=== PATIENT | male | born 1985 | race Caucasian/White ===

== ENCOUNTER 2017-07-20 12:14 | Inpatient (IN) | payer BC, OTHER ==
[~2017-07-20] VITALS: Ht 182.9 cm; Wt 117.9 kg
--- NOTE | 2017-07-20 14:42 | NUR ---
Pre-Assessment Senior Education Specialist asked to assess pt for admittance into [facility]. Pt presents as calm and cooperative, A/O x4 and able to make needs known. Pt is irritable, at times, able to control self. Pt's VS stable. Pt reports an allergy to Tetanus. Denies any PMH or home medications. Pt denies any history of seizures. Endorses a dependence on Heroin and Xanax. Pt endorses a regular diet. Pt is [facility].
[2017-07-20] MEDS ORDERED: LORAZEPAM 2 MG/1 ML VIAL IM PRN (14:45)
[2017-07-20] MEDS ORDERED: LOPERAMIDE HCL 2 MG CAPSULE PO PRN ×2 (14:45)
[2017-07-20] MEDS ORDERED: MAGNESIUM HYDROXIDE 30 ML LIQUID UDC PO PRN (14:45)
[2017-07-20] MEDS ORDERED: ONDANSETRON ODT 4 MG TAB.RAPDIS SL PRN (14:45)
[2017-07-20] MEDS ORDERED: LORAZEPAM 1 MG TABLET PO PRN ×2 (14:45)
[2017-07-20] MEDS ORDERED: ACETAMINOPHEN 325 MG TABLET PO PRN (14:45)
[2017-07-20] MEDS ORDERED: METHOCARBAMOL 750 MG TABLET PO PRN (14:45)
[2017-07-20] MEDS ORDERED: CLONIDINE HCL 0.1 MG TABLET PO PRN (14:45)
[2017-07-20] MEDS ORDERED: MAG HYDROX/AL HYDROX/SIMETH 30 ML LIQUID UDC PO PRN (14:45)
[2017-07-20] MEDS ORDERED: diphenhydrAMINE 50 MG CAPSULE PO PRN (14:45)
[2017-07-20] MEDS ORDERED: ONDANSETRON 4 MG/2 ML VIAL IM PRN (14:45)
[2017-07-20] MEDS ORDERED: MIRALAX 17 GM POWD.PACK PO PRN (14:45)
[2017-07-20] MEDS ORDERED: BUPRENORPHINE HCL 2 MG TAB.SUBL SL PRN (14:45)
[2017-07-20] MEDS ORDERED: HYDROXYZINE PAMOATE 25 MG CAPSULE PO PRN (14:45)
[2017-07-20] MEDS ORDERED: DICYCLOMINE HCL 20 MG TABLET PO PRN (14:45)
--- NOTE | 2017-07-20 14:45 | NUR ---
Admission Note Pt was admitted to [facility] per ambulation and escorted by intake personal. Pt is calm and cooperative. Makes his needs known. Pt has a restricted affect and depressed mood. A/O x4. Irritable and easily annoyed. VS stable on admit, skin intact with a scar under breast, due to Gynocamastia. Pt states no other medical issues and does not take home medication. Pt denies any previous seizure history. Pt states he has an allergy to Tetnus. Eats a regular diet and is a full code. Pt has been two previous treatment facilities and is ambivalent about going to a third. Pt states he has come detox due to his care breaking down and not having anywhere else to turn. Pt endorses using Heroin and Xanax for 10+ years and last used at 0900. Pt uses 0.5g/[place] White or 1g Black Tar Heroin daily and 1-2mg of Xanax. Pt denies Hi/SI or A/VH, or any other psychiatric illnesses. Pt denies having a PCP, Psychiatrist or therapist. Pt's initial COWS 4 and CIWA 4. Pt not making any complaints and denies any withdrawal symptoms at this time. Pt educated on unit rules, guidelines and restrictions with no further comments, questions or concerns voiced. Will continue to monitor, support and encourage according to plan of care.
[2017-07-20 17:02] VITALS: BP 126/82
[2017-07-20 17:23] LABS: *AMPHETAMINE, URINE NEGATIVE (NEGATIVE); *BARBITURATE, URINE NEGATIVE (NEGATIVE); *CANNABINOID, URINE POSITIVE (NEGATIVE); *COCCAINE, URINE NEGATIVE (NEGATIVE); *OPIATE, URINE POSITIVE (NEGATIVE); *PHENCYCLIDINE SCREEN,URINE NEGATIVE (NEGATIVE)
--- NOTE | 2017-07-20 19:06 | NUR ---
End of Shift Lottery Sales Clerk provided report for 31 year old male admitted today by publicity writer. Pt is admitted for Heroin and Xanax detoxification. Pt reports allergy to Tetnus and eats a regular diet and is a full code. Denies PMH, history of breast reduction due to Gynocamastia. Skin in is intact, aside from large scar running length of chest, under breasts. Pt denies a history of seizures. Placed on universal and seizure precautions. Pt will start his Ativan taper tonight and Subutex taper tomorrowPt was not provided with PRN and has made no complaints of [id number] symptoms. Pt has been calm and cooperative, although can be short and irritable. Provided urine, awaiting test results. Pts 1600 CIWA 7 and COWS 6. Bed in low position, wheels locked and side rails up x2. All safety measures in place. Will continue to monitor, support and encourage according to plan of care.
--- NOTE | 2017-07-20 19:45 | NUR ---
Start of Shift Notes Received 31 year old male admitted on 07/20/2017 for Heroin and Xanax dependence. Px has allergies on Tetanus and eats a regular diet and is a full code. PMHx of breast reduction due to Gynecomastia. Skin in is intact, aside from large scar running length of chest, under breasts. Px denies a history of seizures. Placed on universal and seizure precautions. Px will start his Ativan taper tonight and Subutex taper tomorrow. During the rounds at 1940, px reported moderate anxiety and heart burn. Bed in low position, wheels locked and side rails up x2. All safety measures in place. We'll continue to monitor, support and encourage according to plan of care.
[2017-07-20 20:00] VITALS: BP 119/74
[2017-07-20] MEDS: GABAPENTIN 300 MG CAPSULE PO SCH (20:41)
[2017-07-20] MEDS: IBUPROFEN 600 MG TABLET PO PRN (20:41)
--- NOTE | 2017-07-20 20:41 | NUR ---
PRN meds 2040, px reported heart haley and body aches 08/28. Maalox 30 ml given PO and Motrin 600 mg given PO as PRN meds. We'll continue to monitor.
[2017-07-20] MEDS ORDERED: LORAZEPAM 1 MG TABLET PO SCH (21:00)
[2017-07-20 23:00] LABS: ALANINE AMINOTRANSFERASE 71 U/L (16-63); ALKALINE PHOSPHATASE 98 U/L (50-136); ASPARTATE AMINOTRANSFERASE 26 U/L (15-37); BILIRUBIN,TOTAL 0.4 mg/dL (0.2-1.0); CARBON DIOXIDE 26 mmol/L (21-32); CHLORIDE 102 mmol/L (98-107); GLUCOSE 102 mg/dL (74-106); MAGNESIUM 2.2 mg/dL (1.8-2.4); POTASSIUM 4.2 mmol/L (3.5-5.1); TOTAL PROTEIN, SERUM 7.8 g/dL (6.4-8.2); UREA NITROGEN, BLOOD 17 mg/dL (7-18)
[2017-07-20 23:06] LABS: ETHANOL < 3 MG/DL (0-0)
[2017-07-20 23:12] LABS: BASOPHILS # (AUTO) 0.1 K/uL (0.0-8.0); BASOPHILS % (AUTO) 0.6 % (0.0-2.0); EOSINOPHILS # (AUTO) 0.2 K/uL (0.0-0.7); EOSINOPHILS % (AUTO) 1.5 % (0.0-7.0); HEMATOCRIT 40.8 % (36.7-47.1); HEMOGLOBIN 13.9 g/dL (12.5-16.3); LYMPHOCYTES # (AUTO) 3.3 K/uL (20.0-40.0); LYMPHOCYTES % (AUTO) 24.7 % (20.5-51.5); MEAN CORPUSCULAR HEMOGLOBIN 28.6 uug (23.8-33.4); MEAN CORPUSCULAR HGB CONC 34 g/dL (32.5-36.3); MEAN CORPUSCULAR VOLUME 84.1 fL (73.0-96.2); MONOCYTES # (AUTO) 0.8 K/uL (2.0-10.0); MONOCYTES % (AUTO) 5.8 % (0.0-11.0); NEUTROPHILS % (AUTO) 67.4 % (38.5-71.5); PLATELET COUNT (AUTO) 291 K/uL (152-348); RED BLOOD CELL COUNT(AUTO) 4.86 MIL/uL (4.06-5.63); WHITE BLOOD COUNT (AUTO) 13.3 K/uL (3.6-10.2)
[2017-07-21] VITALS: BP 113/60
[2017-07-21 04:00] VITALS: BP 119/66
--- NOTE | 2017-07-21 07:15 | NUR ---
End of Shift Notes 31 year old male admitted on 07/20/2017 for Heroin and Xanax dependence. Px has allergies on Tetanus and eats a regular diet and is a full code. PMHx of breast reduction due to Gynocamastia. Skin in is intact, aside from large scar running length of chest, under breasts. Px denies a history of seizures. Placed on universal and seizure precautions. Px will start his Ativan taper tonight and Subutex taper tomorrow. During the shift, px reported moderate anxiety. At 2040, px reported heart haley and body aches 08/28. Maalox 30 ml given PO and Motrin 600 mg given PO as PRN meds. Oral intake of 500 ml, voided 2x, No BM. Slept for 8 hours. Bed in low position, wheels locked and side rails up x2. All safety measures in place. We'll continue to monitor, support and encourage according to plan of care.
--- NOTE | 2017-07-21 07:44 | NUR ---
START OF SHIFT RECEIVED PT LAYING IN BED, A/OX4, RESPIRATIONS EVEN AND UNLABORED. PT APPEARS ANXIOUS, AGITATED, PUPILS LARGER THAN NORMAL SIZE, PILOERECTION OF THE SKIN SEEN,TREMORS ARE FELT. PT REPORTS HAVING COLD SWEATS, RESTLESSNESS, ANXIETY, GENERALIZED BODY ACHES, BACKACHE. SUBUTEX INDUCTION TO BEGIN TODAY. SIDE RAILS UPX2, BED IS IN LOWEST POSITION. CALL LIGHT IS WITHIN REACH. ALL SAFETY MEASURES IN PLACE. WILL CONTINUE TO MONITOR.
[2017-07-21 08:00] VITALS: BP 134/88
[2017-07-21] MEDS: GABAPENTIN 300 MG CAPSULE PO SCH (08:05)
[2017-07-21] MEDS: IBUPROFEN 600 MG TABLET PO PRN (08:39)
--- NOTE | 2017-07-21 08:40 | NUR ---
PRN MOTRIN 600 MG PO PRN GIVEN FOR GENERALIZED BODY ACHES AND BACKACHE 12/28. WILL MONITOR FOR EFFECTIVENESS.
[2017-07-21] MEDS ORDERED: BUPRENORPHINE HCL 2 MG TAB.SUBL SL SCH (09:00)
[2017-07-21] MEDS ORDERED: LORAZEPAM 1 MG TABLET PO SCH (09:00)
[2017-07-21] MEDS ORDERED: TUBERCULIN,PURIF.PROT.DERIV. 5 TU/0.1 ML TEST ID ONE (09:00)
--- NOTE | 2017-07-21 09:40 | NUR ---
REASSESSMENT PT REPORTS MED WAS NOT EFFECTIVE FOR HIS BACKACHE. WILL CONTINUE TO MONITOR.
--- NOTE | 2017-07-21 10:15 | NUR ---
PRN ATIVAN 2 MG PO PRN GIVEN FOR CIWA 16, ROBAXIN 750 MG PO PRN GIVEN FOR HEADACHE, BODY ACHES AND BACK PAIN 01/28. PT IS HIGHLY AGITATED AND ANXIOUS, PT IS SWEATING AND TREMORS ARE NOTED. WILL MONITOR FOR EFFECTIVENESS.
--- NOTE | 2017-07-21 11:15 | NUR ---
REASSESSMENT CIWA 7. PT APPEARS LESS AGITATED AND ANXIOUS, MILD TREMORS NOTED. PT VERBALIZED HE WANTS TO LEAVE AMA, ENCOURAGED PT TO STAY. WILL CONTINUE TO MONITOR AND PROVIDE SUPPORT.
--- NOTE | 2017-07-21 11:45 | NUR ---
AMA PT LEFT AMA AT 1145 ON 07/21/17 WITH ALL BELONGINGS, AND AMA PAPERWORK. MULTIPLE STAFF INCLUDING DR. RAPHAEL TRIED TO ENCOURAGE PT TO CONTINUE DETOX. PT VERBALIZED UNDERSTANDING HOWEVER HE STATED HE WAS NOT READY FOR TREATMENT AND ADAMANT ABOUT LEAVING. AMA PAPERWORK EXPLAINED, DATED AND SIGNED. PT DENIED HOPKINS/HI, VVS, SKIN INTACT. AWARE OF PT AMA. Addendum: 07/21/17 at 1212 by BRANDON MARIE RN AMA NOTE
[2017-07-22 08:07] LABS: HEPATITIS B SURFACE AG Negative (Negative)
[2017-07-22] MEDS ORDERED: BUPRENORPHINE HCL 2 MG TAB.SUBL SL SCH ×2 (09:00→15:00)
[2017-07-22] MEDS ORDERED: LORAZEPAM 1 MG TABLET PO SCH (09:00)
[2017-07-23] MEDS ORDERED: BUPRENORPHINE HCL 2 MG TAB.SUBL SL SCH (09:00)
[2017-07-23] MEDS ORDERED: LORAZEPAM 1 MG TABLET PO SCH (09:00)
[2017-07-24] MEDS ORDERED: LORAZEPAM 1 MG TABLET PO SCH (09:00)
[2017-07-24] MEDS ORDERED: BUPRENORPHINE HCL 2 MG TAB.SUBL SL SCH (09:00)
== END 2017-07-21 11:45 | disposition left against medical advice (07) | DRG 894 ==
LOC: SRC 14:00
PROVIDERS: ADMIT Internal Medicine; ATTEND Internal Medicine
PROC: HZ2ZZZZ Detoxification Services for Substance Abuse Treatment (ICD-10-PCS; principal; 2017-07-20)
DX: F11.23 Opioid dependence with withdrawal (principal); F14.10 Cocaine abuse, uncomplicated; G47.00 Insomnia, unspecified; F13.239 Sedative, hypnotic or anxiolytic dependence with withdrawal, unspecified; F41.9 Anxiety disorder, unspecified; Z81.1 Family history of alcohol abuse and dependence; Z83.3 Family history of diabetes mellitus
CPT/HCPCS: 36415; 80307; 80346; 80349; 80361; 83735; 85025; 86580; 86592; 86705; 86803; 87340; 87806; A4663; G0480

== ENCOUNTER 2017-10-12 15:45 | Inpatient (IN) | payer BC, OTHER ==
[~2017-10-12] VITALS: Ht 182.9 cm; Wt 113.4 kg
[2017-10-12] MEDS ORDERED: ONDANSETRON ODT 4 MG TAB.RAPDIS SL PRN (19:45)
[2017-10-12] MEDS ORDERED: MIRALAX 17 GM POWD.PACK PO PRN (19:45)
[2017-10-12] MEDS ORDERED: LORAZEPAM 1 MG TABLET PO PRN (19:45)
[2017-10-12] MEDS ORDERED: HYDROXYZINE PAMOATE 25 MG CAPSULE PO PRN (19:45)
[2017-10-12] MEDS ORDERED: LORAZEPAM 2 MG/1 ML VIAL IM PRN (19:45)
[2017-10-12] MEDS ORDERED: LOPERAMIDE HCL 2 MG CAPSULE PO PRN ×2 (19:45)
[2017-10-12] MEDS ORDERED: CLONIDINE HCL 0.1 MG TABLET PO PRN (19:45)
[2017-10-12] MEDS ORDERED: BUPRENORPHINE HCL 2 MG TAB.SUBL SL PRN (19:45)
[2017-10-12] MEDS ORDERED: ACETAMINOPHEN 325 MG TABLET PO PRN (19:45)
[2017-10-12] MEDS ORDERED: IBUPROFEN 600 MG TABLET PO PRN (19:45)
[2017-10-12] MEDS ORDERED: MAGNESIUM HYDROXIDE 30 ML LIQUID UDC PO PRN (19:45)
[2017-10-12] MEDS ORDERED: MAG HYDROX/AL HYDROX/SIMETH 30 ML LIQUID UDC PO PRN (19:45)
--- NOTE | 2017-10-12 19:45 | NUR ---
Intake Assessment Px is A&Ox4. Px is ambulatory with steady gait. Speech is clear and audible. Px appears disheveled and unshaven. Px is cooperative during interview. VS are as follows BP= 124/88, AZ= 121, RR= 18, O2sat= 95%, and T= 96.7. No complaints of pain at the moment. Px is here for medically supervised withdrawal from opiate and benzo. Px denies any seizure hx. Px is allergic to tetanus toxoid and vaccine. Px didn't bring any home medications. Admission process will continue in the unit.
[2017-10-12 20:30] VITALS: BP 109/73
--- NOTE | 2017-10-12 20:30 | NUR ---
Admission Note Px is a 31 y/o male who is being admitted for medically supervised withdrawal from opiate and benzo. The px is intoxicated at the moment and not currently experiencing withdrawal. Px appears disheveled and unshaven. Px looks depressed. Px is A&Ox4. Speech is clear and has good eye contact. Px states that he experiences high anxiety, restlessness, sweats, chills, stomach cramps, and body pains if he is not using drugs. Px denies hx of withdrawal-induced seizure. Px states current substance use as follows: 1. Heroin- 1-2 G smoked daily for 4 mos, last use 10/12/2017 of 0.3 G smoked 2. Alprazolam- 0.5 mg to 1.5 mg PO daily for 6-8 mos, last intake 10/12/2017 of 0.5 mg PO 3. Hydrocodone-Acetaminophen- intermittent use 4. Soma- intermittent use 5. Cocaine- intermittent use Px states that he is seeking tx today because he wanted to stop this expensive habit of drug use. Px had been in tx/detox before, 3x where the last was July of 2017 here in [facility] in which the px went AMA within 24 hours. Px was able to be sober for 5 mos in the year 2010. Px states that he cant stay up sober due to the following: failure to be professional, emotional pains and heart breaks in relationships. Px states that he just need to focus and stay on the right track and have a lot of realizations to be sober. Px verbalized I want to be normal again. VS are as follows BP= 109/73, OH= 116, RR= 17, T= 97.6, O2sat= 97% in RA. Pulse is regular but tachycardic. Respirations are even and unlabored. Lungs li are clear. Bowel sounds are active in all quadrants. Skin is intact. Px follows regular diet at home. Px is allergic to Tetanus toxoid and vaccine. Px's ht= 6' and weighs 250 lbs. Px's PMH includes asthma(not active), anxiety, depression and surgical operation due to gynecomastia in january 2017. Px doesn't have PCP, or psychiatrist. Px was educated about the plan of care including detox, group therapy, individual therapy and D/C planning. Px was encouraged to be open, honest and verbalize support for successful recovery.
[2017-10-12 21:38] LABS: *AMPHETAMINE, URINE NEGATIVE (NEGATIVE); *BARBITURATE, URINE NEGATIVE (NEGATIVE); *CANNABINOID, URINE NEGATIVE (NEGATIVE); *COCCAINE, URINE NEGATIVE (NEGATIVE); *OPIATE, URINE POSITIVE (NEGATIVE); *PHENCYCLIDINE SCREEN,URINE NEGATIVE (NEGATIVE)
--- NOTE | 2017-10-12 21:48 | NUR ---
1x dose medications Ativan 1 mg/tab, 2 tabs given PO and Gabapentin 300 mg/cap, 1 cap PO as 1x dose medications. We'll continue to monitor.
--- NOTE | 2017-10-12 21:52 | NUR ---
PRN Imodium Px complained of 1x watery stools. Px was given Imodium 2 mg/cap, 2 caps PO as PRN med. We'll continue to monitor.
[2017-10-12] MEDS ORDERED: LORAZEPAM 1 MG TABLET PO SCH (22:00)
[2017-10-12] MEDS ORDERED: GABAPENTIN 300 MG CAPSULE PO SCH (22:00)
[2017-10-12 22:42] LABS: BASOPHILS # (AUTO) 0.2 K/uL (0.0-8.0); BASOPHILS % (AUTO) 1.2 % (0.0-2.0); EOSINOPHILS # (AUTO) 0.1 K/uL (0.0-0.7); EOSINOPHILS % (AUTO) 0.9 % (0.0-7.0); HEMATOCRIT 45.5 % (36.7-47.1); HEMOGLOBIN 15.7 g/dL (12.5-16.3); LYMPHOCYTES # (AUTO) 2.5 K/uL (20.0-40.0); LYMPHOCYTES % (AUTO) 20.3 % (20.5-51.5); MEAN CORPUSCULAR HEMOGLOBIN 29.4 uug (23.8-33.4); MEAN CORPUSCULAR HGB CONC 35 g/dL (32.5-36.3); MEAN CORPUSCULAR VOLUME 85.2 fL (73.0-96.2); MONOCYTES # (AUTO) 0.5 K/uL (2.0-10.0); MONOCYTES % (AUTO) 3.6 % (0.0-11.0); NEUTROPHILS # (AUTO) 9.3 K/uL (1.8-8.9); PLATELET COUNT (AUTO) 314 K/uL (152-348); RED BLOOD CELL COUNT(AUTO) 5.35 MIL/uL (4.06-5.63); WHITE BLOOD COUNT (AUTO) 12.6 K/uL (3.6-10.2)
[2017-10-12 22:58] LABS: ALANINE AMINOTRANSFERASE 97 U/L (16-63); ALKALINE PHOSPHATASE 107 U/L (50-136); ASPARTATE AMINOTRANSFERASE 31 U/L (15-37); BILIRUBIN,TOTAL 0.5 mg/dL (0.2-1.0); CARBON DIOXIDE 22 mmol/L (21-32); CHLORIDE 101 mmol/L (98-107); CREATININE 1.2 mg/dL (0.6-1.3); ETHANOL < 3 MG/DL (0-0); GLUCOSE 144 mg/dL (74-106); MAGNESIUM 2.2 mg/dL (1.8-2.4); POTASSIUM 3.9 mmol/L (3.5-5.1); TOTAL PROTEIN, SERUM 8.2 g/dL (6.4-8.2); UREA NITROGEN, BLOOD 20 mg/dL (7-18)
[2017-10-13] VITALS: BP 116/82
[2017-10-13 04:00] VITALS: BP 110/77
--- NOTE | 2017-10-13 04:00 | NUR ---
COWS and CIWA deferred COWS and CIWA deferred due to the px is asleep, to assess if the px is awake per doctor's order. We'll continue to monitor.
--- NOTE | 2017-10-13 07:11 | NUR ---
End of Shift Note During the shift at 2147, Px received 1x dose medications of Ativan 2 mg PO and Gabapentin 300 mg PO. At 2151, px was given Imodium 4 mg PO for 1x watery stools. It was effective. Px's oral intake is 600 ml, voided 2x, BM 1x. At 0630, px is asleep on bed in right side lying position. Last COWS 4 and CIWA 6. Bed on lowest position, side rails up 2x and call light within reach. We'll continue to monitor. Px endorsed to AM shift nurse.
--- NOTE | 2017-10-13 07:15 | NUR ---
START OF SHIFT: PATIENT IS A 31 YR OLD MALE ADMITTED TO [facility] ON 10/12/17 FOR A MEDICALLY SUPERVISED WITHDRAWAL FROM HEROIN, BENZODIAZEPINES, OXYCODONE AND COCAINE. PATIENT HAS BEEN ORDERED A 4 DAY ATIVAN/SUBUTEX TAPER TO START TODAY. PATIENT IS AWAKE AT THIS TIME AND VOMITING, ZOFRAN 4MG IM GIVEN AND MAALOX 30CC PO PER REQUEST. WILL CONTINUE TO MONITOR S/S. PRN IMMODIUM GIVEN ON PM SHIFT FOR DIARRHEA WHICH WAS EFFECTIVE. PATIENT SLEPT FOR 6 HOURS, LAST COWS 4 AND CIWA 6. CONTINUE TO FOLLOW MD PLAN OF CARE.
[2017-10-13] MEDS: ONDANSETRON 4 MG/2 ML VIAL IM PRN (07:26)
--- NOTE | 2017-10-13 07:30 | NUR ---
PRN ZOFRAN/MAALOX 4MG ZOFRAN IM GIVEN IN LEFT DELTOID FOR VOMITING X 3 AND CONSTANT NAUSEA MAALOX 30CC PO GIVEN FOR C/O ACID STOMACH WILL REASSESS
[2017-10-13 08:00] VITALS: BP 133/92
[2017-10-13] MEDS: DICYCLOMINE HCL 20 MG TABLET PO PRN ×2 (08:29→14:02)
[2017-10-13] MEDS: LORAZEPAM 1 MG TABLET PO SCH ×3 (08:29→21:17)
--- NOTE | 2017-10-13 08:30 | NUR ---
PRN REASSESS N/V CEASED, ZOFRAN/MAALOX EFFECTIVE
--- NOTE | 2017-10-13 08:30 | NUR ---
PRN IMODIUM IMODIUM 2MG PO GIVEN FOR DIARRHEA, WILL REASSESS
[2017-10-13] MEDS ORDERED: TUBERCULIN,PURIF.PROT.DERIV. 5 TU/0.1 ML TEST ID ONE (09:00)
--- NOTE | 2017-10-13 09:30 | NUR ---
PRN REASSESS IMODIUM EFFECTIVE, DIARRHEA CEASED, WILL CONTINUE TO MONITOR
[2017-10-13] MEDS: BUPRENORPHINE HCL 2 MG TAB.SUBL SL SCH ×3 (10:24→21:17)
[2017-10-13 12:00] VITALS: BP 126/93
[2017-10-13] MEDS: LORAZEPAM 1 MG TABLET PO PRN ×2 (12:38→17:53)
--- NOTE | 2017-10-13 12:40 | NUR ---
prn subutex/ativan SUBUTEX 4MG GIVEN COWS 14 ATIVAN 2MG PO GIVEN CIWA 13
[2017-10-13] MEDS ORDERED: QUET50TA14 PO (12:46)
--- NOTE | 2017-10-13 13:40 | NUR ---
PRN REASSESS SUBUTEX EFFECTIVE COWS DECREASED FROM 14 TO 9 ATIVAN EFFECTIVE CIWA DECREASED FROM 13 TO 10 WILL CONTINUE TO MONITOR AND ASSESS
[2017-10-13] MEDS: METHOCARBAMOL 750 MG TABLET PO PRN (14:02)
[2017-10-13 16:00] VITALS: BP 133/89
--- NOTE | 2017-10-13 17:55 | NUR ---
PRN ATIVAN/MOTRIN ATIVAN 2MG PO GIVEN FOR CIWA 13 AND INCREASED ANXIETY MOTRIN 600MG PO GIVEN FOR BODY ACHES /10
--- NOTE | 2017-10-13 19:18 | NUR ---
END OF SHIFT: PATIENT IS A 31 YR OLD MALE ADMITTED TO [facility] ON 10/12/17 FOR A MEDICALLY SUPERVISED WITHDRAWAL FROM HEROIN, BENZODIAZEPINES, OXYCODONE AND COCAINE. PATIENT HAS BEEN ORDERED A 4 DAY ATIVAN/SUBUTEX TAPER STARTED TODAY. PATIENTS WITHDRAWAL SYMPTOMS HAVE INCLUDED N/V, DIARRHEA,DYSPEPSIA, ABDOMINAL CRAMPING, CHILLS , DIAPHORESIS, RESTLESS LEGS, DECREASED APETITE, ANXIETY AND AGITATION AND FATIGUE . PRN MEDICATIONS GIVEN ON THIS SHIFT : ZOFRAN IM, MAALOX, BENTYL,MOTRIN, SUBUTEX 4MG AND ATIVAN 2 MG X 2. PATIENT HAS BEEN IN BED ALL DAY SLEEPING ON AND OFF. LAST COWS 13 AND CIWA 13@ 1700 . PATIENT HAD A FLUID INTAKE OF 1500 ML, 3 VOIDS AND 2 BM. CONTINUE TO FOLLOW MD PLAN OF CARE. ENDORSED TO NIGHT NURSE
--- NOTE | 2017-10-13 19:45 | NUR ---
Start of Shift Note Received a 31 y/o male px, admitted for medically supervised withdrawal from Opiate and Benzo. Px was placed on 4 day Ativan and 4 day Subutex taper. Px is tolerating them. Last reported COWS 13 and CIWA 13. During the rounds at 1945, px is awake on bed in fowlers position watching TV. Px appears anxious, unshaven and disheveled. Px stated "My anxiety 7/10 and I have body aches of 3/10". Bed on lowest position, side rails up 2x and call light within reach. We'll continue to monitor.
[2017-10-13 20:00] VITALS: BP 123/66
[2017-10-13] MEDS: GABAPENTIN 300 MG CAPSULE PO SCH (21:17)
[2017-10-13] MEDS: QUETIAPINE FUMARATE 100 MG TABLET PO SCH (21:17)
[2017-10-14] VITALS: BP 118/71
[2017-10-14 04:00] VITALS: BP 107/66
--- NOTE | 2017-10-14 04:00 | NUR ---
COWS and CIWA deferred COWS and CIWA deferred at 0000 and 0400 due to the px is asleep, to assess if the px is awake per doctor's order. We'll continue to monitor.
--- NOTE | 2017-10-14 07:15 | NUR ---
End of Shift Note During the shift, px complained of generalized body aches of 3/10 but doesn't want pain pill. Px's oral intake is 350 ml, voided 1x, No BM. Px slept for 8 hours. Last COWS 11 and CIWA 10. At 0630, px is asleep on bed in fowlers position. Bed on lowest position, side rails up 2x and call light within reach. We'll continue to monitor. Px endorsed to AM shift nurse.
--- NOTE | 2017-10-14 07:30 | NUR ---
START OF SHIFT Pt 31 y/o male admitted for opiate and benzo withdrawal. Pt received in room on bed with eyes closed resting, but easily arousable to name. Pt alert and oriented to name, place, and time. Perrla. Skin warm and moist to touch. Respirations even and unlabored. Bilateral hand tremors noted. Pt anxious this morning and with pressured speech noted. Pt appears disheveled. Clothes and empty water bottles scattered throughout the room. Encouraged to maintain hygiene. It was reported that pt slept for 8 hours last night. Pt is on a 4 day ativan taper and is on day 2. Pt is also on a 4 day subutex taper and is on day 2. Bed on lowest position with side railsx 2 up for safety. Call light within reach.
[2017-10-14 08:00] VITALS: BP 112/82
[2017-10-14] MEDS: GABAPENTIN 300 MG CAPSULE PO SCH ×2 (08:43→21:12)
[2017-10-14] MEDS: METHOCARBAMOL 750 MG TABLET PO PRN (08:44)
--- NOTE | 2017-10-14 08:45 | NUR ---
PRN Pt with c/o body aches generalized. Robaxin po prn per MD order given and tolerated well.
[2017-10-14] MEDS ORDERED: LORAZEPAM 1 MG TABLET PO SCH ×2 (09:00→21:00)
[2017-10-14] MEDS ORDERED: BUPRENORPHINE HCL 2 MG TAB.SUBL SL SCH (09:00)
[2017-10-14 09:07] LABS: HEPATITIS B SURFACE AG Negative (Negative)
--- NOTE | 2017-10-14 09:45 | NUR ---
ANTONIO PAULINO pt observed in room on bed watching television.
[2017-10-14 12:00] VITALS: BP 130/81
[2017-10-14] MEDS ORDERED: KETOROLAC TROMETHAMINE 30 MG INJ IM PRN (12:15)
[2017-10-14] MEDS: LORAZEPAM 1 MG TABLET PO SCH ×2 (13:55→16:45)
[2017-10-14] MEDS: ONDANSETRON 4 MG/2 ML VIAL IM PRN (14:06)
[2017-10-14] MEDS: BUPRENORPHINE HCL 2 MG TAB.SUBL SL SCH ×2 (14:11→21:11)
--- NOTE | 2017-10-14 14:20 | NUR ---
PRN Pt with vomit episode x1 of food particles. Zofran IM prn per MD order given and tolerated well.
--- NOTE | 2017-10-14 15:20 | NUR ---
PRN EVAL Pt denies any nausea / vomit at this time.
[2017-10-14 16:00] VITALS: BP 122/86
--- NOTE | 2017-10-14 18:46 | NUR ---
END OF SHIFT Pt 31 y/o male admitted for opiate and benzo withdrawal. Pt alert and oriented to name, place, and time. Perrla. Skin warm and moist to touch. Respirations even and unlabored. Bilateral hand tremors noted. Pt appears disheveled. Clothes and empty water bottles scattered throughout the room. Encouraged to maintain hygiene. It was reported that pt slept for 9 hours last night. Pt is on a 4 day ativan taper and is on day 2. Pt is also on a 4 day subutex taper and is on day 2. Cows=11@0800, 9@1200, and 9@1600. Ciwa=9@0800, 9@1200, and 9@1600. Bed on lowest position with side railsx 2 up for safety. Call light within reach.
--- NOTE | 2017-10-14 19:45 | NUR ---
Start of Shift Note Received a 31 y/o male px, admitted for medically supervised withdrawal from Opiate and Benzo. Px was placed on 4 day Ativan and 4 day Subutex taper. Px is tolerating them. Last reported COWS 9 and CIWA 9. During the rounds at 1945, px is awake on bed in fowlers position watching TV. Px appears anxious, unshaven and disheveled. Unfinished snacks noted on top of bed side table. Px stated "My anxiety is 7/10 and I feel like fatigued and weak". Bed on lowest position, side rails up 2x and call light within reach. We'll continue to monitor.
[2017-10-14 20:00] VITALS: BP 113/77
[2017-10-14] MEDS: BACLOFEN 10 MG TABLET PO SCH (21:11)
[2017-10-14] MEDS: QUETIAPINE FUMARATE 100 MG TABLET PO SCH (21:11)
[2017-10-14] MEDS: CLONIDINE HCL 0.1 MG TABLET PO SCH (21:12)
[2017-10-15] VITALS: BP 110/78
[2017-10-15 04:00] VITALS: BP 106/72
--- NOTE | 2017-10-15 07:00 | NUR ---
End of Shift Note During the shift, no PRN medications given. Px's oral intake is 800 ml, voided 2x, No BM. Px slept for 7 hours. Last COWS 7 and CIWA 7. At 0630, px is awake on bed in fowlers position. Bed on lowest position, side rails up 2x and call light within reach. We'll continue to monitor. Px endorsed to AM shift nurse.
--- NOTE | 2017-10-15 07:30 | NUR ---
START OF SHIFT Pt 31 y/o male admitted for opiate and benzo withdrawal. Pt received in room on bed awake watching television. Pt alert and oriented to name, place, and time. Perrla. Skin warm and moist to touch. Respirations even and unlabored. Bilateral hand tremors noted. Pt states is experiencing chills and sweats this morning. Pt appears disheveled. Clothes, food wrappings, and empty water bottles scattered throughout the room. Encouraged to maintain hygiene. It was reported that pt slept for 7 hours last night. Pt is on a 4 day ativan taper and is on day 3. Pt is also on a 4 day subutex taper and is on day 3. Bed on lowest position with side rails x 2 up for safety. Call light within reach.
[2017-10-15 08:00] VITALS: BP 122/78
[2017-10-15] MEDS: CLONIDINE HCL 0.1 MG TABLET PO SCH ×2 (08:40→20:45)
[2017-10-15] MEDS: GABAPENTIN 300 MG CAPSULE PO SCH ×3 (08:40→20:45)
[2017-10-15] MEDS: BACLOFEN 10 MG TABLET PO SCH ×2 (08:41→20:44)
[2017-10-15] MEDS: LORAZEPAM 1 MG TABLET PO SCH ×3 (08:41→20:45)
--- NOTE | 2017-10-15 08:49 | NUR ---
PRN Pt states feels nauseated. Zofran odt prn per MD order given and tolerated well.
[2017-10-15] MEDS ORDERED: BUPRENORPHINE HCL 2 MG TAB.SUBL SL SCH ×2 (09:00→21:00)
--- NOTE | 2017-10-15 09:49 | NUR ---
PRN EVAL Pt denies any nausea at this time.
[2017-10-15 12:00] VITALS: BP 95/59
[2017-10-15 16:00] VITALS: BP 114/71
--- NOTE | 2017-10-15 18:55 | NUR ---
END OF SHIFT Pt 31 y/o male admitted for opiate and benzo withdrawal. Pt alert and oriented to name, place, and time. Perrla. Skin warm and moist to touch. Respirations even and unlabored. Bilateral hand tremors noted. Pt appears disheveled. Food wrappings and empty water bottles scattered throughout the room. Encouraged to maintain hygiene. Pt observed mostly isolative to room throughout the day. Pt did not attend group activity. Pt was seen by MD today. Pt medication compliant and tolerated well. No ASE noted. Pt is on a 4 day ativan taper and is on day 3. Pt is also on a 4 day subutex taper and is on day 3. Cows=9@0800, 9@1200, and 9@1600. Ciwa=9@0800, 9@1200, and 9@1600. Bed on lowest position with side railsx 2 up for safety. Call light within reach.
--- NOTE | 2017-10-15 19:51 | NUR ---
START OF SHIFT NOTE Received report from outgoing nurse. Pt. is in his room and is a/o to person, place, time, and situation. Pt. is presenting with an anxious mood, easily agitated, blunted affect, restlessness, sweats, and fidgetiness. Pt. was admitted for heroine and xanax withdrawal. Pt. is on a modified 4 day Ativan and modified 4 day Subutex taper. Pt. received no PRN medications during previous shift. Pt.'s V/S remained stable throughout the day. Last CIWA 9 and COWS 9 @ 1600. Pt.'s bed is in the lowered position and call light within reach. Pt. will continue to be monitored and his needs met.
[2017-10-15 20:00] VITALS: BP 102/67
[2017-10-15] MEDS: QUETIAPINE FUMARATE 100 MG TABLET PO SCH (20:45)
--- NOTE | 2017-10-16 | NUR ---
RN NOTE CIWA, COWS, and V/S deferred. Pt. is in bed, eyes closed, and breathing is unlabored and even.
--- NOTE | 2017-10-16 05:34 | NUR ---
CIWA and COWS deferred. Pt. is in bed, eyes closed, and breathing is even and unlabored.
--- NOTE | 2017-10-16 07:06 | NUR ---
END OF SHIFT NOTE Endorsed pt. to oncoming nurse. Pt. is in his room and is a/o to person, place, time, and situation. Pt. has been presenting with an anxious mood, withdrawn, a flat affect, depressed demeanor, and easily agitated. Pt. had sweats and fine tremors. Pt. received no PRN medications during shift. Pt.s V/S remained stable throughout shift. Pt.s fluid intake was 796 ml. Pt. voided 1 time and slept for 5 hrs. Last CIWA 11 AND COWS 10 @ 1999. Call light within reach. Pt. will continue to be monitored.
--- NOTE | 2017-10-16 07:30 | NUR ---
START OF SHIFT Pt 31 y/o male admitted for opiate and benzo withdrawal. Pt received in room on bed with eyes closed resting, but easily arousable to name. Pt alert and oriented to name, place, and time. Perrla. Skin warm and moist to touch. Respirations even and unlabored. Bilateral hand tremors noted. Pt appears disheveled. Clothes and empty water bottles scattered throughout the room. Encouraged to maintain hygiene. It was reported that pt slept for 5 hours last night. Pt is on a 4 day ativan taper and is on day 4. Pt is also on a 4 day subutex taper and is on day 4. Bed on lowest position with side rails x 2 up for safety. Call light within reach.
[2017-10-16 08:00] VITALS: BP 99/63
[2017-10-16] MEDS: BACLOFEN 10 MG TABLET PO SCH ×3 (08:47→21:03)
[2017-10-16] MEDS: LORAZEPAM 1 MG TABLET PO SCH ×2 (08:47→21:03)
[2017-10-16] MEDS: GABAPENTIN 300 MG CAPSULE PO SCH ×3 (08:47→21:03)
[2017-10-16] MEDS: CLONIDINE HCL 0.1 MG TABLET PO SCH ×3 (08:57→21:00)
[2017-10-16] MEDS ORDERED: BUPRENORPHINE HCL 2 MG TAB.SUBL SL SCH ×2 (09:00)
[2017-10-16 12:20] VITALS: BP 113/70
[2017-10-16 16:00] VITALS: BP 105/60
--- NOTE | 2017-10-16 18:26 | NUR ---
END OF SHIFT Pt 31 y/o male admitted for opiate and benzo withdrawal. Pt alert and oriented to name, place, and time. Perrla. Skin warm and moist to touch. Respirations even and unlabored. Bilateral hand tremors noted. Pt appears disheveled. Clothes and empty water bottles scattered throughout the room. Encouraged to maintain hygiene. Pt observed mostly isolative to room throughout the day. Pt attended group activity. Pt was seen by MD today. Pt medication compliant and tolerated well. No ASE noted. Pt is on a 4 day ativan taper and is on day 4. Pt is also on a 4 day subutex taper and is on day 4. Cows=10@0800, 9@1200, and 10@1600. Ciwa=11@0800, 9@1200, and 9@1600. Bed on lowest position with side railsx 2 up for safety. Call light within reach.
--- NOTE | 2017-10-16 19:30 | NUR ---
START OF SHIFT Pt 31 year old male admitted for opiate and benzo medically supervised withdrawal. Pt received on bed watching TV. Pt is on a 4 day Ativan and 4 day Subutex taper. Pt alert and oriented to name, place, and time. Skin warm and dry to touch. Respirations even and unlabored, RR=16. Bilateral hand tremors noted. Bilateral hand tremors noted. Pt irritable and labile. No PRNs given during a day shift, last CIWA=9, last COWS=10 at 16:00. Pt. complains of labile mood, increased level of anxiety, difficulty falling and staying asleep. Encouraged patient to participate in group therapies and verbalize feelings. Education provided in safety and hygiene care. Patient verbalized understanding. Safety measures in place : bed on lowest position with side rails x2 up for safety, call light within reach. Will continue to monitor closely and offer help.
[2017-10-16 20:00] VITALS: BP 100/65
--- NOTE | 2017-10-16 21:00 | NUR ---
CATAPRES NOT GIVEN ([id number]) Catapres for 21:00 not given because of the low [id number]. Safety measures in place, will continue to monitor closely .
[2017-10-16] MEDS: QUETIAPINE FUMARATE 100 MG TABLET PO SCH (21:03)
--- NOTE | 2017-10-17 06:57 | NUR ---
END OF SHIFT Pt 31 year old male admitted for opiate and benzo medically supervised withdrawal. Pt is on a 4 day Ativan and 4 day Subutex taper. Pt. slept all night long. Last COWS=7, CIWA=7 at 04:00 , Zswbbo=659 ml, voids=x1 ml, slept=5 hours. No PRNs given at a night time. Safety measures in place : bed on lowest position with side rails x2 up for safety, call light within reach. Will continue to monitor closely and offer help.
--- NOTE | 2017-10-17 07:22 | NUR ---
START OF SHIFT PT IS A 31 Y/O M ADMITTED 10/12/17 FOR MEDICALLY SUPERVISED BENZO AND OPIATE WITHDRAWAL. PT COMPLETED SUBUTEX TAPER ON YESTERDAY 10/16/17 AND ATIVAN TAPER TODAY 11/16/17 AND TOLERATED WELL. PT IS A/OX4, RESPIRATIONS EVEN AND UNLABORED. PT HAS A DISHEVELED APPEARANCE, HAS FOOD STAINS IN SWEATER AND ROOM IS UNKEMPT. PT PRESENTS AGITATION, ANXIETY, RESTLESSNESS, DIAPHORESIS, GENERALIZED BODY ACHES AND FATIGUE. LAST COWS 7 AND CIWA 7. EDUCATED PT ON TODAYS PAIN OF CARE AND MED REGIMEN. SIDE RAILS UP X2, BED IN LOW POSITION. CALL LIGHT IS WITHIN REACH. SAFETY MEASURES IN PLACE. WILL MONITOR AND PROVIDE SUPPORT.
[2017-10-17 08:00] VITALS: BP 98/65
[2017-10-17] MEDS ORDERED: BUPRENORPHINE HCL 2 MG TAB.SUBL SL SCH (09:00)
[2017-10-17] MEDS ORDERED: LORAZEPAM 1 MG TABLET PO SCH (09:00)
[2017-10-17] MEDS: GABAPENTIN 300 MG CAPSULE PO SCH ×3 (09:26→20:53)
[2017-10-17] MEDS: CLONIDINE HCL 0.1 MG TABLET PO SCH ×3 (09:27→20:52)
[2017-10-17] MEDS: BACLOFEN 10 MG TABLET PO SCH ×3 (09:27→20:52)
[2017-10-17 12:00] VITALS: BP 98/55
[2017-10-17 16:00] VITALS: BP 97/57
--- NOTE | 2017-10-17 18:45 | NUR ---
END OF SHIFT PT'S LAST COWS 7 CIWA 8. PT HAS BEEN COMPLIANT WITH MED REGIMEN AND TX PLAN. PT ATE 100% OF MEALS. PT HAS COMPLETED SUBUTEX TAPER YESTERDAY AND ATIVAN TAPER TODAY AND TOLERATED IT WELL. PT IS TO BE DISCHARGED TOMORROW. FLUID INTAKE: 2350 ML, VOIDED X3, BM X1. SAFETY MEASURES IN PLACE. WILL GIVE ENDORSEMENT TO DIGITAL FORENSICS EXAMINER.
[2017-10-17] MEDS ORDERED: METH-406 PO (18:49)
[2017-10-17] MEDS ORDERED: HYDR-3895 PO (18:49)
[2017-10-17] MEDS ORDERED: CLON0.1T14 PO (18:49)
[2017-10-17] MEDS ORDERED: IBUP-1955 PO (18:49)
[2017-10-17] MEDS ORDERED: DICY20TA28 PO (18:49)
[2017-10-17] MEDS ORDERED: GABA-534 PO ×2 (18:49)
--- NOTE | 2017-10-17 19:30 | NUR ---
Start of Shift Pt is a 31 y/o male admitted 10/12/17 for medically managed withdrawal/detox from Heroin, Xanax, Cocaine, and Soma. Pt found laying in bed in semi-Fowlers watching TV. Alert and Oriented x 4, answers questions and responds appropriately. No c/o's, no tremors noted. Pt to be d/c'd on 10/18, aftercare plans discussed, eveing meds reviewed with pt requesting sleep meds-pt assured none needed p scheduled meds discussed already. Will monitor patient, promptly attending to all pt needs.
[2017-10-17 20:00] VITALS: BP 104/67
[2017-10-17] MEDS: QUETIAPINE FUMARATE 100 MG TABLET PO SCH (20:53)
--- NOTE | 2017-10-18 | NUR ---
VS's COWS/CIWA Deferred Midnight VS's and COWS/CIWA deferred r/t pt sleeping/refused. RR 14, even and nonlabored. Will continue to monitor and promptly attend to all patient needs.
--- NOTE | 2017-10-18 04:00 | NUR ---
VS's COWS/CIWA Deferred 0400 VS's and COWS/CIWA deferred r/t pt sleeping/refused. RR 14, even and nonlabored. Will continue to monitor and promptly attend to all patient needs.
--- NOTE | 2017-10-18 06:51 | NUR ---
End of Shift Pt is a 31 y/o male admitted 10/12/17 for medically managed withdrawal/detox from Heroin, Xanax, Cocaine, and Soma. Patient to be d/c'd 10/18/17. No PRN'S for shift included. Last COWS/CIWA was 5 at 1999. Patient slept for 6 hours, with 584 mls intake, 1 voids and 0 BM's. Will monitor patient, promptly attending to all pt needs until endorsement given to oncoming day nurse.
--- NOTE | 2017-10-18 07:00 | NUR ---
start of shift note: received pt from night shift supervisor nurse, pt is in stable condition no s/s of pain or discomfort. pt is [facility] for opiate/benzo withdrawal/dependence. last noted cows 5 and ciwa 5. pt is set to discharge today. will assist pt in discharging and will continue to monitor pt for any changes.
[2017-10-18] MEDS: GABAPENTIN 300 MG CAPSULE PO SCH (08:13)
[2017-10-18] MEDS: BACLOFEN 10 MG TABLET PO SCH (08:13)
[2017-10-18] MEDS: CLONIDINE HCL 0.1 MG TABLET PO SCH (08:13)
[2017-10-18 09:08] VITALS: BP 105/64
--- NOTE | 2017-10-18 09:18 | NUR ---
discharge note: pt left the unit in stable condition no s/s of pain or discomfort or any acute withdrawal symptoms. pt teaching administered and pt verbalized understanding. all personal belonging were returned and pt will be discharged home via private car
== END 2017-10-18 09:18 | disposition home or self-care (01) | DRG 895 ==
LOC: SRC 19:05
PROVIDERS: ADMIT Internal Medicine; ATTEND Internal Medicine
PROC: HZ2ZZZZ Detoxification Services for Substance Abuse Treatment (ICD-10-PCS; principal; 2017-10-12)
PROC: HZ51ZZZ Individual Psychotherapy for Substance Abuse Treatment, Behavioral (ICD-10-PCS; 2017-10-14)
DX: F11.23 Opioid dependence with withdrawal (principal); D72.829 Elevated white blood cell count, unspecified; E86.0 Dehydration; F13.230 Sedative, hypnotic or anxiolytic dependence with withdrawal, uncomplicated; F14.10 Cocaine abuse, uncomplicated; F41.9 Anxiety disorder, unspecified; G89.29 Other chronic pain; F32.9 Major depressive disorder, single episode, unspecified; G47.00 Insomnia, unspecified; Z81.1 Family history of alcohol abuse and dependence; Z83.3 Family history of diabetes mellitus; Z81.3 Family history of other psychoactive substance abuse and dependence; R74.0 Nonspecific elevation of levels of transaminase and lactic acid dehydrogenase [LDH]
CPT/HCPCS: 36415; 80307; 80346; 80361; 83735; 85025; 86580; 86592; 86705; 86803; 87340; 87806; A4663; G0480; J2405; Q0162

== ENCOUNTER 2017-11-06 18:29 | Inpatient (IN) | payer BC, OTHER ==
[~2017-11-06] VITALS: Ht 185.4 cm; Wt 125.2 kg
[~2017-11-06 18:29] MED LIST: CLON0.1T14 PO; DICY20TA28 PO; GABA-534 PO; HYDR-3895 PO; IBUP-1955 PO; METH-406 PO
[2017-11-06] MEDS ORDERED: HYDROXYZINE PAMOATE 25 MG CAPSULE PO PRN (19:45)
[2017-11-06] MEDS ORDERED: DICYCLOMINE HCL 20 MG TABLET PO PRN (19:45)
[2017-11-06] MEDS ORDERED: BUPRENORPHINE HCL 2 MG TAB.SUBL SL PRN (19:45)
[2017-11-06] MEDS ORDERED: diphenhydrAMINE 50 MG CAPSULE PO PRN (19:45)
[2017-11-06] MEDS ORDERED: MAG HYDROX/AL HYDROX/SIMETH 30 ML LIQUID UDC PO PRN (19:45)
[2017-11-06] MEDS ORDERED: IBUPROFEN 600 MG TABLET PO PRN (19:45)
[2017-11-06] MEDS ORDERED: ONDANSETRON ODT 4 MG TAB.RAPDIS SL PRN (19:45)
[2017-11-06] MEDS ORDERED: ACETAMINOPHEN 325 MG TABLET PO PRN (19:45)
[2017-11-06] MEDS ORDERED: MIRALAX 17 GM POWD.PACK PO PRN (19:45)
[2017-11-06] MEDS ORDERED: LORAZEPAM 2 MG/1 ML VIAL IM PRN (19:45)
[2017-11-06] MEDS ORDERED: DOCUSATE SODIUM 250 MG CAPSULE PO PRN (19:45)
[2017-11-06] MEDS ORDERED: CLONIDINE HCL 0.1 MG TABLET PO PRN (19:45)
[2017-11-06] MEDS ORDERED: LORAZEPAM 1 MG TABLET PO PRN ×2 (19:45)
[2017-11-06] MEDS ORDERED: MAGNESIUM HYDROXIDE 30 ML LIQUID UDC PO PRN (19:45)
[2017-11-06] MEDS ORDERED: ONDANSETRON 4 MG/2 ML VIAL IM PRN (19:45)
[2017-11-06] MEDS ORDERED: METHOCARBAMOL 750 MG TABLET PO PRN (19:45)
[2017-11-06] MEDS ORDERED: LOPERAMIDE HCL 2 MG CAPSULE PO PRN (19:45)
--- NOTE | 2017-11-06 19:50 | NUR ---
PRE-ADMISSION NOTE VS BP-128/79 P-88 R-18 T-98.4 PA-0/10. SpO2 AT 96% IN RA. PATIENT HAS ALLERGY TO TETANUS VACCINE. HE HAS NO SEIZURE HISTORY. PATIENT AMBULATORY, SPEECH CLEAR AND ANSWER QUESTIONS APPROPRIATELY. PATIENT IS HERE FOR XANAX, HEROIN, SOMA AND MARIJUANA. WILL CONTINUE ADMISSION ON 3RD FLOOR.
[2017-11-06 19:56] VITALS: BP 128/79
--- NOTE | 2017-11-06 20:15 | NUR ---
ADMISSION NOTE PATIENT CAME IN THE UNIT AT 1956. PATIENT IS A 31 YEAR OLD MALE WHO PRESENTS TO [facility] FOR MEDICALLY SUPERVISED WITHDRAWAL FROM BENZO/OPIATE WITHDRAWAL. HEIGHT IS 6'1 AND WEIGHT IS 276 LBS. BODY CHECK DONE. SKIN CLEAR AND INTACT, WARM TO TOUCH. LUNGS CLEAR AND ABDOMEN SOFT AND NON-DISTENDED. RESPIRATION EVEN AND UNLABORED. LAST BOWEL MOVEMENT TODAY. PATIENT REPORTS PMH OF GYNECOMASTIA , COSMETIC SURGERY FOR GYNECOMASTIA, ANXIETY AND DEPRESSION. NO SEIZURE HISTORY. 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 PATIENT RELAPSED 2 WEEKS AGO. PER PATIENT "I DID NOT GO TO REHAB I LEFT HERE , I WENT HOME AND I RELAPSED BECAUSE OF THE PHYSICAL PAIN BUT I WILL GO AFTER I DETOX HERE" . PATIENT IS MILDLY INTOXICATED. PATIENTS DRUG OF CHOICE ARE : 1.XANAX-STARTED USING AT AGE 19. HE TAKES 1-2 MG DAILY FOR 2 WEEKS. LAS USE WAS 1 MG ON 11/06/17 2.HEROIN (SMOKE)-STARTED USING SINCE 2008. HE SMOKES -1 GRAM DAILY FOR 2 WEEKS. LAST USE WAS "COUPLE OF HITS" ON 11/06/17 3.SOMA-STARTED USING AT AGE 14. HE USES UNKNOWN AMOUNT INTERMITTENTLY. LAS USE WAS 1,000 MG 2 DAYS AGO 4. MARIJUANA-STARTED USING AT AGE 11. HE USES 1/2 GRAM -1 GRAM DAILY FOR 2 1/2 WEEKS . LAST USE WAS 1 GRAM ON 11/06/17 TREATMENT HISTORY 1.[facility]- JUL 20, [id number], OCTOBER 12, 2017 AND NOVEMBER 06, 2017 2.[facility] LAST YEAR-STAYED FOR 20 DAYS PATIENT REQUESTED TO BE FULL CODE AND ON REGULAR DIET. PATIENT WAS PATIENT DOES NOT HAVE PCP. PATIENTS LONGEST PERIOD OF SOBRIETY WAS 5 MONTHS IN 2010. PATIENT SMOKES 1 PACK, HES BEEN TRYING TO QUIT. PATIENT DID NOT BROUGHT HOME MEDICATION BUT STATES HE TAKES SEROQUEL 100 MG FOR SLEEP. PATIENT PRESENTS WITH ANXIETY AND RESTLESS , YAWNING AND FACE FLUSHED . COWS 7 AND CIWA 7. NO SI/HI. PATIENT WAS SEEN BY DR. RAPHAEL AT INTAKE. PATIENT ORIENTED TO SURROUNDINGS AND HOW TO USE CALL LIGHT. PATIENT EXPLAINED [id number], UNIT AND SMOKING POLICIES. SAFETY MEASURES PLACE. CALL LIGHT IN REACH. WILL CONTINUE TO MONITOR.
[2017-11-06 20:35] LABS: *AMPHETAMINE, URINE NEGATIVE (NEGATIVE); *BARBITURATE, URINE NEGATIVE (NEGATIVE); *CANNABINOID, URINE POSITIVE (NEGATIVE); *COCCAINE, URINE NEGATIVE (NEGATIVE); *OPIATE, URINE POSITIVE (NEGATIVE); *PHENCYCLIDINE SCREEN,URINE NEGATIVE (NEGATIVE)
[2017-11-06] MEDS ORDERED: LORAZEPAM 1 MG TABLET PO SCH (21:00)
[2017-11-06] MEDS: GABAPENTIN 300 MG CAPSULE PO SCH (21:30)
[2017-11-07] VITALS: BP 123/77
[2017-11-07 00:54] LABS: BASOPHILS % (AUTO) 0.6 % (0.0-2.0); EOSINOPHILS # (AUTO) 0.2 K/uL (0.0-0.7); EOSINOPHILS % (AUTO) 3.1 % (0.0-7.0); HEMATOCRIT 38.4 % (36.7-47.1); HEMOGLOBIN 13.1 g/dL (12.5-16.3); LYMPHOCYTES # (AUTO) 2.5 K/uL (20.0-40.0); LYMPHOCYTES % (AUTO) 36.3 % (20.5-51.5); MEAN CORPUSCULAR HEMOGLOBIN 29.6 uug (23.8-33.4); MEAN CORPUSCULAR HGB CONC 34 g/dL (32.5-36.3); MEAN CORPUSCULAR VOLUME 86.4 fL (73.0-96.2); MONOCYTES # (AUTO) 0.5 K/uL (2.0-10.0); NEUTROPHILS # (AUTO) 3.6 K/uL (1.8-8.9); PLATELET COUNT (AUTO) 243 K/uL (152-348); RED BLOOD CELL COUNT(AUTO) 4.44 MIL/uL (4.06-5.63); WHITE BLOOD COUNT (AUTO) 6.9 K/uL (3.6-10.2)
[2017-11-07 00:56] LABS: ALANINE AMINOTRANSFERASE 99 U/L (16-63); ALKALINE PHOSPHATASE 88 U/L (50-136); ASPARTATE AMINOTRANSFERASE 42 U/L (15-37); BILIRUBIN,TOTAL 0.3 mg/dL (0.2-1.0); CARBON DIOXIDE 29 mmol/L (21-32); CHLORIDE 103 mmol/L (98-107); CREATININE 0.9 mg/dL (0.6-1.3); ETHANOL < 3 MG/DL (0-0); GLUCOSE 82 mg/dL (74-106); POTASSIUM 3.8 mmol/L (3.5-5.1); TOTAL PROTEIN, SERUM 6.8 g/dL (6.4-8.2); UREA NITROGEN, BLOOD 10 mg/dL (7-18)
[2017-11-07 04:00] VITALS: BP 128/74
[2017-11-07] MEDS ORDERED: QUET100T PO (04:07)
--- NOTE | 2017-11-07 07:23 | NUR ---
END OF SHIFT NOTE PATIENT SLEPT 4 HOURS. FLUID INTAKE 355 ML. VOIDED X 1. BM X 1. MONITORED PATIENT THROUGHOUT SHIFT. PATIENT IS NEWLY ADMITTED FOR BENZO/OPIATE WITHDRAWAL. PATIENT HAD INTERMITTENT SLEEP. OFFERED PATIENT WITH SLEEP MEDICATION BUT HE STATES HES OKAY. PATIENT DID NOT REQUIRE PRN MEDICATION. LAST COWS 7 AND CIWA 7. SAFETY MEASURES IN PLACE. CALL LIGHT IN REACH. WILL CONTINUE TO MONITOR.
--- NOTE | 2017-11-07 07:42 | NUR ---
Start of shift note; Received report from night nurse. Patient is 21 year old male admitted on 11/06/17 for Opiate/Benzodiazepine withdrawals. Patient to start 5 day Ativan and 5 day Subutex taper. Patient slept for 3 hours. Patient's last COWS score is 7 and last CIWA is 7 per endorsement. Patient is AOX4 , complaining of muscle aches, hot and cold sweats, tremors to touch. Educated patient regarding the importance of compliance to treatment and medication regime. All safety measures secured. Will continue to monitor patient.
[2017-11-07 08:00] VITALS: BP 129/81
[2017-11-07] MEDS: GABAPENTIN 300 MG CAPSULE PO SCH ×3 (09:00→20:15)
[2017-11-07] MEDS: LORAZEPAM 1 MG TABLET PO SCH ×3 (09:00→20:14)
[2017-11-07] MEDS ORDERED: TUBERCULIN,PURIF.PROT.DERIV. 5 TU/0.1 ML TEST ID ONE (09:00)
[2017-11-07] MEDS: BUPRENORPHINE HCL 2 MG TAB.SUBL SL SCH ×3 (09:01→20:15)
[2017-11-07 12:00] VITALS: BP 132/85
--- NOTE | 2017-11-07 13:42 | NUR ---
PRN medication; Patient reported episodes of diarrhea. PRN Imodium 4mg PO given for 1st bout of diarrhea. Will continue to monitor patient for effectiveness of medication.
--- NOTE | 2017-11-07 14:41 | NUR ---
Re-assessment; Patient denies diarrhea at this time. PRN medication noted to be effective.
--- NOTE | 2017-11-07 14:42 | NUR ---
End of shift note; Patient is AOX4, complaining of muscle aches, anxiety, agitation, stomach cramps. Patient remained compliant with treatment plan and medication regime. Patient's last COWS score is 10 and last CIWA score is 9 at 1600. Patient received PRN Imodium for episodes of diarrhea noted to be effective. Encouraged patient to maintain adequate fluid and nutritional intake, patient verbalized understanding. Medications were effective in reducing withdrawal symptoms. All safety measures secured. Met all needs.
[2017-11-07 16:00] VITALS: BP 130/80
--- NOTE | 2017-11-07 19:30 | NUR ---
START OF SHIFT Pt is 31 year old male admitted on 11/06/17 for Opiate/Benzodiazepine withdrawals. Patient started on 5 day Ativan and 5 day Subutex taper today and is tolerating well. Pt's last COWS score is 10 and last CIWA is 9 at 1600. Patient is A/A/O X 4 ,seen resting in room, c/o feeling anxious,restless with muscle aches, hot and cold sweats and diarrhea.PO fluid encouraged as tolerated. All safety measures in place,call light within reach.Will continue to monitor for safe withdrawals.
[2017-11-07 20:00] VITALS: BP 140/89
[2017-11-07] MEDS: QUETIAPINE FUMARATE 100 MG TABLET PO SCH (20:15)
[2017-11-07] MEDS: CLONIDINE HCL 0.1 MG TABLET PO SCH (20:15)
[2017-11-07] MEDS: BACLOFEN 10 MG TABLET PO SCH (20:15)
[2017-11-07] MEDS: LOPERAMIDE HCL 2 MG CAPSULE PO PRN (20:16)
--- NOTE | 2017-11-07 20:16 | NUR ---
PRN MEDS PT C/O MYALGIA AND DIARRHEA.PRN MEDS ROBAXIN AND IMODIUM GIVEN ORDERED RESPECTIVELY.WILL MONITOR FOR EFFECTIVENESS.
--- NOTE | 2017-11-07 21:15 | NUR ---
PRN F/U MYALGIA RELIEVED,NO C/O DIARRHEA AT THIS TIME.WILL CONTINUE TO MONITOR.
[2017-11-08] VITALS: BP 126/80
--- NOTE | 2017-11-08 | NUR ---
COWS/CIWA DEFERRED D/T PT BEING ASLEEP.BREATHING IS EVEN AND NON LABORED,NO S/S OF DISTRESS NOTED,ALL SAFETY MEASURES IN PLACE,WILL CONTINUE TO MONITOR.
--- NOTE | 2017-11-08 04:00 | NUR ---
COWS/CIWA DEFERRED D/T PT BEING ASLEEP. V/S REFUSED. BREATHING IS EVEN AND NON LABORED,NO S/S OF DISTRESS NOTED,ALL SAFETY MEASURES IN PLACE,WILL CONTINUE TO MONITOR.
--- NOTE | 2017-11-08 06:47 | NUR ---
END OF SHIFT Pt is 31 year old male admitted on 11/06/17 for Opiate/Benzodiazepine withdrawals. Pt continues on 5 day Ativan and 5 day Subutex taper and is tolerating well. Pt's last COWS score is 12 and last CIWA is 9 at 1999. Patient is A/O X 4 .PRN Robaxin and Imodium were given last night and were effective.Pt slept 8 hours, fluid intake was 1000 mls,voided x 1, b/m x 1. PO fluid encouraged as tolerated. All safety measures in place,call light within reach.Will endorse care to oncoming shift nurse.
--- NOTE | 2017-11-08 07:25 | NUR ---
Start of shift note; Received report from night nurse. Patient is 21 year old male admitted on 11/06/17 for Opiate/Benzodiazepine withdrawals. Patient was placed on 5 day Ativan and 5 day Subutex taper. Patient slept for 8 hours. Patient's last COWS score is 12 and last CIWA is 9 per endorsement. Patient is AOX4 , complaining of muscle aches, hot and cold sweats, tremors to touch. Educated patient regarding the importance of compliance to treatment and medication regime. Encouraged patient to maintain adequate fluid and nutritional intake. All safety measures secured. Will continue to monitor patient.
[2017-11-08 08:00] VITALS: BP 136/89
[2017-11-08] MEDS: BACLOFEN 10 MG TABLET PO SCH ×3 (08:20→21:13)
[2017-11-08] MEDS: CLONIDINE HCL 0.1 MG TABLET PO SCH ×3 (08:21→21:13)
[2017-11-08] MEDS: GABAPENTIN 300 MG CAPSULE PO SCH ×2 (08:21→14:47)
[2017-11-08] MEDS: LORAZEPAM 1 MG TABLET PO SCH ×2 (08:21→12:08)
[2017-11-08] MEDS ORDERED: BUPRENORPHINE HCL 2 MG TAB.SUBL SL SCH (09:00)
[2017-11-08] MEDS ORDERED: KETOROLAC TROMETHAMINE 30 MG INJ IM PRN (10:45)
[2017-11-08 12:00] VITALS: BP 115/78
[2017-11-08] MEDS: LIDOCAINE 5% PATCH TD SCH (12:08)
[2017-11-08] MEDS: BUPRENORPHINE HCL 2 MG TAB.SUBL SL SCH ×2 (14:48→21:12)
[2017-11-08 16:00] VITALS: BP 126/82
[2017-11-08] MEDS: LOPERAMIDE HCL 2 MG CAPSULE PO PRN (16:29)
--- NOTE | 2017-11-08 16:32 | NUR ---
PRN medication; Patient reported one episode of diarrhea. PRN Imodium 2mg PO given for diarrhea. Will continue to monitor patient for effectiveness of medication.
[2017-11-08] MEDS ORDERED: LORAZEPAM 1 MG TABLET PO SCH ×2 (17:00→21:00)
[2017-11-08 17:08] LABS: HEPATITIS B SURFACE AG Negative (Negative)
--- NOTE | 2017-11-08 17:32 | NUR ---
Re-assessment; Patient denies further episodes of diarrhea,PRN medication is effective.
--- NOTE | 2017-11-08 18:47 | NUR ---
End of shift note; Patient is AOX4, complaining of muscle aches, anxiety, agitation, stomach cramps. Patient remained compliant with treatment plan and medication regime. Patient's last COWS score is 10 and last CIWA score is 6 at 1600. Patient received PRN Imodium 2mg PO for 1 episode of diarrhea noted to be effective. Encouraged patient to maintain adequate fluid and nutritional intake, patient verbalized understanding. Medications were effective in reducing withdrawal symptoms. All safety measures secured. Met all needs.
--- NOTE | 2017-11-08 19:30 | NUR ---
START OF SHIFT Pt is 31 year old male admitted on 11/06/17 for Opiate/Benzodiazepine withdrawals. Pt continues on 5 day Ativan and 5 day Subutex and is tolerating well. Pt's last COWS score is 10 and last CIWA is 6 at 1600. Patient is A/A/O X 4 ,remains compliant with medication regime and treatment plan,stated that the medications are helpful in reducing withdrawal symptoms. PO fluids encouraged as tolerated. All safety measures in place,call light within reach.Will continue to monitor for safe withdrawals.
[2017-11-08 20:00] VITALS: BP 126/83
[2017-11-08] MEDS ORDERED: GABAPENTIN 300 MG CAPSULE PO SCH (21:00)
[2017-11-08] MEDS: QUETIAPINE FUMARATE 100 MG TABLET PO SCH (21:13)
--- NOTE | 2017-11-08 21:22 | NUR ---
PRN MOTRIN GIVEN ORDERED FOR C/O BACK PAIN 11/28.WILL MONITOR FOR EFFECTIVENESS.
--- NOTE | 2017-11-08 22:20 | NUR ---
PRN MOTRIN IS EFFECTIVE IN RELIEVING BACK PAIN LEVEL,2/10.
[2017-11-09] VITALS: BP 118/73
--- NOTE | 2017-11-09 04:00 | NUR ---
COWS/CIWA DEFERRED D/T PT BEING ASLEEP. V/S REFUSED. BREATHING IS EVEN AND NON LABORED,NO S/S OF DISTRESS NOTED,ALL SAFETY MEASURES IN PLACE,WILL CONTINUE TO MONITOR.
--- NOTE | 2017-11-09 06:43 | NUR ---
END OF SHIFT Pt is 31 year old male admitted on 11/06/17 for Opiate/Benzodiazepine withdrawals. Pt continues on 5 day Ativan and 5 day Subutex and is tolerating well. Pt's last COWS score is 6 and last CIWA is 4 at midnight. Patient is A/O X 4 ,remains compliant with medication regime and treatment plan,stated that the medications are helpful in reducing withdrawal symptoms.PRN Motrin given x 1 and was effective. Pt slept 7 hours,fluid intake was 1710 mls,voided x 1,had b/m x 1.PO fluids encouraged as tolerated. All safety measures in place,call light within reach.Will continue to monitor .
[2017-11-09 08:00] VITALS: BP 118/73
--- NOTE | 2017-11-09 08:05 | NUR ---
START OF SHIFT: RECEIVED PT A/O X 4. HE PRESENTS WITH GUARDED AFFECT AND IRRITABLE MOOD.HE IS LAYING IN BED WITH FIDGETY LEGS. HE REPORTS RESTLESSNESS, ANXIETY,RESTLESSNESS AND IRRITABILITY. HE STATES HE DID NOT SLEEP WELL AND WAS RESTLESS AND SWEATY. COWS 12 CIWA 7 SUBUTEX TAPER IN PROGRESS TO MANAGE S/S OF W/D. ENCOURAGED INCREASED FLUIDS TO ASSIST IN FACILITATING DETOX PROCESS. ENCOURAGED GROUP ATTENDANCE TO IMPROVE COPING SKILLS AND PREVENT RELAPSE. WILL CONTINUE TO MONITOR AND OFFER SUPPORT.
[2017-11-09] MEDS: GABAPENTIN 300 MG CAPSULE PO SCH ×3 (08:56→20:52)
[2017-11-09] MEDS: CLONIDINE HCL 0.1 MG TABLET PO SCH ×2 (08:57→15:39)
[2017-11-09] MEDS: BACLOFEN 10 MG TABLET PO SCH (08:57)
[2017-11-09] MEDS: LIDOCAINE 5% PATCH TD SCH (08:58)
[2017-11-09] MEDS: BUPRENORPHINE HCL 2 MG TAB.SUBL SL SCH ×3 (08:58→20:54)
[2017-11-09] MEDS ORDERED: LORAZEPAM 1 MG TABLET PO SCH ×3 (09:00→21:00)
[2017-11-09 11:00] VITALS: BP 118/73
[2017-11-09 12:00] VITALS: BP 100/61
[2017-11-09] MEDS: BACLOFEN 20 MG TABLET PO SCH ×2 (15:38→20:52)
[2017-11-09 16:00] VITALS: BP 120/83
--- NOTE | 2017-11-09 16:44 | NUR ---
Client was prompted to attend daily group therapy sessions. Client stated that he would attend if he was feeling like he was able to do so.
--- NOTE | 2017-11-09 18:42 | NUR ---
END OF SHIFT: PT CONTINUES ON SUBUTEX/ATIVAN TAPER TO MANAGE S/S OF W/D WHICH INCLUDE RESTLESSNESS,ANXIETY ,BODY ACHES AND IRRITABILITY. LAST COWS 7 CIWA 6. HE STATES THE DETOX MEDS ARE EFFECTIVE. PT ISOLATED IN HIS ROOM IN BED AND DID NOT ATTEND GROUPS OR INTERACT WITH PEERS. EDUCATED PT ON IMPORTANCE OF GROUP ATTENDANCE. WILL PASS SHIFT REPORT TO ONCOMING NIGHT NURSE.
--- NOTE | 2017-11-09 19:30 | NUR ---
START OF SHIFT Received 31 year old male patient admitted on 11/06/17 for Xanax, Heroin, Soma, and Marijuana withdrawal. Pt is alert and oriented x4. Pt noted with anxiety, body aches, chills, sweats, stuffy nose and watery eyes. Per endorsement, pt did not receive or request PRN medications. He is currently receiving a 5 day Ativan and Subutex taper and tolerating well. Last COWS:7, CIWA:6 at 1600. Breathing is even and unlabored, safety measures in place. Will monitor.
[2017-11-09 20:00] VITALS: BP 108/73
[2017-11-09] MEDS: CLONIDINE HCL 0.2 MG TABLET PO SCH (20:53)
[2017-11-09] MEDS: QUETIAPINE FUMARATE 100 MG TABLET PO SCH (20:53)
[2017-11-10] VITALS: BP 112/70
--- NOTE | 2017-11-10 04:00 | NUR ---
VITALS REFUSED, COWS/CIWA DEFERRED 0400 vitals refused. COWS and CIWA deferred d/t pt lying in bed with eyes closed noted to be asleep. Breathing is even and unlabored, safety measures in place. Will monitor.
--- NOTE | 2017-11-10 07:25 | NUR ---
END OF SHIFT Pt is a 31 year old male patient admitted on 11/06/17 for Xanax, Heroin, Soma, and Marijuana withdrawal. Pt remains alert and oriented x4. Pt was noted with anxiety, body aches, chills, sweats, stuffy nose and watery eyes during the shift. He did not receive or request PRN medications. He continues on a 5 day Ativan and Subutex taper and is tolerating well. He slept a total of 8 hrs, Intake: 855mL, Void:x1, BM:0, Last COWS:10, CIWA:10 at 1999. Breathing is even and unlabored, safety measures in place. Endorsed to AM shift.
[2017-11-10 08:00] VITALS: BP 108/71
--- NOTE | 2017-11-10 08:00 | NUR ---
START OF SHIFT: RECEIVED PT A/O X 4. HE PRESENTS WITH GUARDED AFFECT AND ANXIOUS MOOD. HE IS LAYING IN BED WITH FIDGETY LEGS. HE REPORTS RESTLESSNESS, ANXIETY,AND BODY ACHES. HE STATES HE SLEPT WELL LAST NIGHT AND FEELS BETTER THEN YESTERDAY. COWS 7 CIWA 5 SUBUTEX/ATIVAN TAPER IN PROGRESS TO MANAGE S/S OF W/D. ENCOURAGED INCREASED FLUIDS TO ASSIST IN FACILITATING DETOX PROCESS. ENCOURAGED GROUP ATTENDANCE TO IMPROVE COPING SKILLS AND PREVENT RELAPSE. WILL CONTINUE TO MONITOR AND OFFER SUPPORT.
[2017-11-10] MEDS: BACLOFEN 20 MG TABLET PO SCH ×3 (08:43→20:36)
[2017-11-10] MEDS: GABAPENTIN 300 MG CAPSULE PO SCH ×3 (08:43→20:35)
[2017-11-10] MEDS: LORAZEPAM 1 MG TABLET PO SCH ×2 (08:44→20:36)
[2017-11-10] MEDS: BUPRENORPHINE HCL 2 MG TAB.SUBL SL SCH ×2 (08:44→20:36)
[2017-11-10] MEDS: CLONIDINE HCL 0.1 MG TABLET PO SCH ×2 (08:44→14:58)
[2017-11-10] MEDS: LIDOCAINE 5% PATCH TD SCH (08:44)
[2017-11-10 12:00] VITALS: BP 110/73
[2017-11-10 16:00] VITALS: BP 107/72
--- NOTE | 2017-11-10 19:00 | NUR ---
END OF SHIFT: PT CONTINUES ON SUBUTEX/ATIVAN TAPER TO MANAGE S/S OF W/D WHICH INCLUDE RESTLESSNESS,ANXIETY AND BODY ACHES. LAST COWS 5 CIWA 5. HE STATES THE DETOX MEDS ARE EFFECTIVE. PT ATTENDED GROUPS AND INTERACTED WITH PEERS. WILL PASS SHIFT REPORT TO ONCOMING NIGHT NURSE.
--- NOTE | 2017-11-10 19:30 | NUR ---
START OF SHIFT Received 31 year old male patient admitted on 11/06/17 for Xanax, Heroin, Soma and Marijuana withdrawal. Pt is alert and oriented x4. Pt noted with anxiety, restlessness, and body aches. He continues on a 5 day Ativan and 5 day Subutex taper and is tolerating well. Per endorsement, he did not receive or request PRN medications. Pt attended group today. Last COWS:5, CIWA:5 at 1600. Breathing is even and unlabored, safety measures in place. Will monitor.
[2017-11-10 20:00] VITALS: BP 116/71
[2017-11-10] MEDS: CLONIDINE HCL 0.2 MG TABLET PO SCH (20:35)
[2017-11-10] MEDS: QUETIAPINE FUMARATE 100 MG TABLET PO SCH (20:35)
[2017-11-11] VITALS: BP 110/70
--- NOTE | 2017-11-11 04:00 | NUR ---
VITALS REFUSED, COWS/CIWA DEFERRED 0400 vitals refused. COWS and CIWA deferred d/t pt lying in bed with eyes closed noted to be asleep. Breathing is even and unlabored, safety measures in place. Will continue to monitor.
--- NOTE | 2017-11-11 07:10 | NUR ---
END OF SHIFT Pt is a 31 year old male patient admitted on 11/06/17 for Xanax, Heroin, Soma and Marijuana withdrawal. He remains alert and oriented x4. He was noted with anxiety, restlessness, and body aches at the start of shift. He remains on a 5 day Ativan and 5 day Subutex taper and is tolerating well. He did not receive or request PRN medications. He slept a total of 8 hrs, Intake: 355mL, Void: x1, BM:1,COWS:6, CIWA:10 at 2000. Breathing is even and unlabored, safety measures in place. Endorsed to AM shift.
--- NOTE | 2017-11-11 07:14 | NUR ---
BEGINNING OF SHIFT Patient endorsement report received from shift superintendent caustic cresylate nurse, all pertinent information discussed. Patient is a 44 year old male with admitting Dx: BZO/Opiate withdrawal. Patient currently under close observation, patient currently with ongoing 5 day Ativan and 5 day Subutex taper as ordered, patient completed 5 day Ativan taper, and is scheduled to receive last dose of Subutex taper this morning. Patients fall and seizure precautions in place and observed at all times. Patient received awake, alert and oriented x4. will monitor closely, will educated regarding plan of care for the day, and medication regimen. Patient received no PRNs during shift superintendent caustic cresylate. last ciwa score of: 6, and last cow score of: 10. patient slept 8 hours. will continue to monitor closely. safety measures in place.
[2017-11-11 08:09] VITALS: BP 118/78
[2017-11-11] MEDS: CLONIDINE HCL 0.1 MG TABLET PO SCH ×2 (08:11→14:29)
[2017-11-11] MEDS: GABAPENTIN 300 MG CAPSULE PO SCH ×2 (08:11→14:30)
[2017-11-11] MEDS: BACLOFEN 20 MG TABLET PO SCH ×3 (08:11→21:58)
[2017-11-11] MEDS: LIDOCAINE 5% PATCH TD SCH (08:13)
[2017-11-11] MEDS ORDERED: LORAZEPAM 1 MG TABLET PO SCH (09:00)
[2017-11-11] MEDS ORDERED: BUPRENORPHINE HCL 2 MG TAB.SUBL SL SCH (09:00)
[2017-11-11 13:05] VITALS: BP 119/70
[2017-11-11 17:06] VITALS: BP 97/64
--- NOTE | 2017-11-11 18:57 | NUR ---
END OF SHIFT Patient monitored closely during shift. Patient alert and oriented x4. Admitting Dx: Opiate/BZO withdrawal. Patient noted odorous, disheveled, and unshaved, with depressed, and anxious mood. Patient encouraged self grooming and personal hygiene, encourage maintenance of personal area. Patient received last dose of detox medication this morning, and is scheduled to be discharged tomorrow morning, patient self motivated towards sobriety. During shift patient presented with: c/o chills, difficulty sitting still, mild bone and joint aches, tremors that can be felt , yawning and anxiety initial cow score of: 8 and ciwa score of: 6, last cow score of: 6 and last ciwa score of: 5. Detox medication effective at reducing withdrawal symptoms. Patient encouraged participation in therapy sessions, patient denies any SI/HI, noted attending and participating. Patient was encouraged to verbalize feelings, encouraged to develop coping skills and utilization of non pharmacological interventions. Encouraged patient to increase PO fluid intake as tolerated. Patients safety measures are in place. call light kept within reach, will continue to monitor. Endorsed to night assistant nurse, all pertinent information discussed.
--- NOTE | 2017-11-11 19:00 | NUR ---
Start of Shift Patient Received. Patient is in the activities room participating in a group meeting. Per endorsement, patient has completed a 5 day Ativan and 5 day Subutex taper. He is set for discharge tomorrow morning 11/11/17 to [facility]. Patient is noted odorous, disheveled, and unshaved, with depressed and anxious mood. Patient encouraged self grooming and personal hygiene, encourage maintenance of personal area. Last noted COWS 6 and CIWA 5.All needs attended to promptly. Will continue plan of care as ordered.
[2017-11-11 20:30] VITALS: BP 113/67
[2017-11-11] MEDS ORDERED: GABAPENTIN 300 MG CAPSULE PO SCH (21:00)
[2017-11-11] MEDS ORDERED: GABA-534 PO ×2 (21:09)
[2017-11-11] MEDS ORDERED: IBUP-1955 PO (21:09)
[2017-11-11] MEDS ORDERED: CLON0.1T14 PO (21:09)
[2017-11-11] MEDS ORDERED: DICY20TA28 PO (21:09)
[2017-11-11] MEDS ORDERED: BACL20TA PO (21:09)
[2017-11-11] MEDS ORDERED: LIDO30AD10 TD (21:09)
[2017-11-11] MEDS ORDERED: DIPH50CA37 PO (21:09)
[2017-11-11] MEDS ORDERED: HYDR-3895 PO (21:09)
[2017-11-11] MEDS: CLONIDINE HCL 0.2 MG TABLET PO SCH (21:58)
[2017-11-11] MEDS: QUETIAPINE FUMARATE 100 MG TABLET PO SCH (21:58)
--- NOTE | 2017-11-12 00:15 | NUR ---
Vitals Refused Patient is noted in bed sleeping. Breathing even and non labored. Vitals refused. Patient respirations noted to be 16. COWS and CIWA not able to be completed as per order. Will continue to monitor.
--- NOTE | 2017-11-12 04:30 | NUR ---
Vitals Refused Patient is noted in bed sleeping. Breathing even and non labored. Vitals refused. Respirations noted to be 16. No facial grimacing noted. COWS and CIWA not able to be completed as per order. Will continue to monitor. Addendum: 11/12/17 at 0505 by PRISCILA CHAUDHARY LVN Amended: Links added.
--- NOTE | 2017-11-12 07:08 | NUR ---
End of Shift Patient is in bed sleeping. Breathing even and non labored. Patient completed a 5 day Ativan and 5 day Subutex taper. He is set for discharge today 11/11/17 to [facility]. Patient is noted odorous, disheveled, unshaved, depressed, flat, blunt, and anxious mood. No PRN Medications administered. Last noted COWS 6 and CIWA 7. All needs attended to promptly. Will endorse to continue plan of care as ordered.
--- NOTE | 2017-11-12 07:15 | NUR ---
BEGINNING OF SHIFT Patient endorsement report received from shiftman nurse, all pertinent information discussed. Patient is a 44 year old male with admitting Dx: BZO/Opiate withdrawal. Patient currently under close observation, patient currently with ongoing 5 day Ativan and 5 day Subutex taper as ordered, patient completed 5 day Ativan and Subutex taper, and is scheduled to be discharged this morning. Patients fall and seizure precautions in place and observed at all times. Patient received awake, alert and oriented x4. will monitor closely, will educated regarding plan of care for the day, and medication regimen, will also educate patient regarding all discharge instructions. Patient received no PRNs during shiftman. last ciwa score of: 7, and last cow score of: 6. patient slept 7 hours. will continue to monitor closely. safety measures in place.
[2017-11-12] MEDS: BACLOFEN 20 MG TABLET PO SCH (08:24)
[2017-11-12] MEDS: GABAPENTIN 300 MG CAPSULE PO SCH (08:25)
[2017-11-12] MEDS: CLONIDINE HCL 0.1 MG TABLET PO SCH (08:25)
[2017-11-12] MEDS: LIDOCAINE 5% PATCH TD SCH (08:26)
[2017-11-12 08:38] VITALS: BP 122/74
--- NOTE | 2017-11-12 09:27 | NUR ---
DISCHARGE Patient discharged off the unit at 0927, prior to discharge patient was educated and provided with teaching regarding all discharge instructions with good verbal understanding. Patients vital signs WNL. last cow score of: 5, last ciwa score of: 5. Patient noted self motivated towards sobriety. Patients prescriptions and discharge instructions were placed in patients personal duffel bag. Patient off the unit in stable condition, not in any apparent acute distress at 0927.
== END 2017-11-12 09:27 | disposition other institution (70) | DRG 895 ==
LOC: SRC 19:18
PROVIDERS: ADMIT Internal Medicine; ATTEND Internal Medicine
PROC: HZ2ZZZZ Detoxification Services for Substance Abuse Treatment (ICD-10-PCS; principal; 2017-11-06)
PROC: HZ41ZZZ Group Counseling for Substance Abuse Treatment, Behavioral (ICD-10-PCS; 2017-11-10)
DX: F11.23 Opioid dependence with withdrawal (principal); F12.90 Cannabis use, unspecified, uncomplicated; F41.9 Anxiety disorder, unspecified; G47.00 Insomnia, unspecified; F13.230 Sedative, hypnotic or anxiolytic dependence with withdrawal, uncomplicated; Z81.8 Family history of other mental and behavioral disorders; R74.0 Nonspecific elevation of levels of transaminase and lactic acid dehydrogenase [LDH]; M54.5 Low back pain; G89.29 Other chronic pain; F32.9 Major depressive disorder, single episode, unspecified; Z83.3 Family history of diabetes mellitus; Z81.1 Family history of alcohol abuse and dependence; Z81.3 Family history of other psychoactive substance abuse and dependence
CPT/HCPCS: 36415; 70030-TC; 80307; 80346; 80349; 80361; 83735; 85025; 86592; 86705; 86803; 87340; 87806; G0480